=== PATIENT | female | born 1950 | race Caucasian/White ===

== ENCOUNTER 2025-01-03 14:04 | Inpatient (IN) ==
--- NOTE | 2025-01-03 14:49 | History & Physical Report ---
Date of Service January 03, 2025 Assessment & Plan (1) Cauda equina syndrome: Plan: Patient is being admitted directly to Dr. Slater service. We are proceeding with a stat lumbar MRI without contrast. Make n.p.o. after midnight in anticipation of proceeding with surgical intervention of her lumbar spine due to above-mentioned complaints. All of this has been reviewed with the patient and her . They expressed understanding are in agreement with above-mentioned plan Admission and Anticipated Discharge Date Admission Date: January 03, 2025 History of Present Illness Chief Complaint: Progressive loss of control of bowel function and bilateral lower extremity pain worsening Primary Care Provider: Abdelrahman Lemons MD Is a 74-year-old female that was referred to our office today from Dr. Darby in [facility] pain management team. She states since May she has had bilateral leg pain. She has see sought chiropractic treatment in [facility] as well as physical therapy without any long-term improvement. She then went to Dr. Darby for injections. She has received 2. After the first injection she started with loss of control of bowel. She went to a GI specialist at [facility] where they gave her an unknown medication which seemed to help her symptoms. Now for the past 2 weeks that she has had a return of her loss of control of bowel. She also notes urinary retention. She went to [facility] ER this weekend where they told her she has cauda equina syndrome, scheduled her for an outpatient MRI on Saturday 01/06 and told her that she should find a surgeon within 72 hours. She fortunately had a follow-up with Dr. Darby's team the next day where they called our office for urgent appointment. Allergies Allergy/AdvReac Type Severity Reaction Status Date / Time No Known Allergies Allergy Unknown Verified 10/12/06 18:29 acetaminophen AdvReac Unknown NOT Verified 03/28/09 03:59 TOLERATED PER [id number] oxycodone AdvReac Unknown NOT Verified 03/28/09 03:59 TOLERATED PER [id number] Home Medications Medication Instructions Recorded Confirmed Type Atenolol (Tenormin) 100 mg PO DAILY ##0 10/04/06 History Valsartan/Hctz (Diovan Hct 1 tab PO DAILY ##0 10/04/06 History 160MG/25MG *) Past Med/Surg History Problem List (Updated 01/03/25 @ 14:48 by Nae Day PA-C) Cauda equina syndrome Review of Systems Review of Systems: All systems reviewed & are unremarkable except as noted in HPI & below Physical Exam Physical Exam: She is seen today in conjunction with her . She is cooperative exam. She ambulates with an independent steady gait. She can toe walk and heel walk. Strength is 5/5 bilateral lower extremities Constitutional: average body habitus Eyes: normal visual newell by confrontation ENMT: external ear and nose normal, oropharynx normal Neck: normal visual inspection Respiratory: normal respiratory effort Cardiovascular: Extremities: normal capillary refill Gastrointestinal (Abdomen): normal bowel sounds, soft, nontender, no hepatosplenomegaly Musculoskeletal: Spine: + pain with thoraco-lumbar ROM Extremities: extremities normal to inspection and strength 5/5 throughout Skin: no rashes, warm and dry Neurologic: normal touch/pain/proprioception and moves all extremities Psychiatric: A+Ox3, euthymic affect Eye Contact: good eye contact
[2025-01-03] MEDS ORDERED: LORazepam Inj 0.5 MG in SYRINGE 0.25 ML IV PRN (15:15)
[2025-01-03] MEDS ORDERED: LORazepam 0.5 MG TAB PO PRN (15:15)
[2025-01-03] MEDS ORDERED: METOCLOPRAMIDE HCL INJ 5 MG/ML 2 ML VIAL IV PRN (15:15)
[2025-01-03] MEDS ORDERED: ACETAMINOPHEN 1,000 MG/100 ML VIAL IV PRN (15:15)
[2025-01-03] MEDS ORDERED: PROMETHAZINE 12.5 MG/50.5 ML BAG IV PRN (15:15)
[2025-01-03] MEDS ORDERED: NALOXONE HCL 0.4 MG/1 ML VIAL/CARP IV PRN (15:15)
[2025-01-03] MEDS ORDERED: HYDROmorphone INJ 1 MG/ML SYRINGE IV PRN (15:15)
[2025-01-03] MEDS: SODIUM CHLORIDE 0.9% 1,000 ML IV SCH (15:15)
[2025-01-03] MEDS ORDERED: ONDANSETRON 4 MG OD TAB PO PRN (15:15)
[2025-01-03] MEDS ORDERED: ONDANSETRON INJ 2 MG/ML 2 ML VIAL IV PRN (15:15)
[2025-01-03] MEDS: Patient's HEIGHT &/or WEIGHT Needed STA (15:54)
--- NOTE | 2025-01-03 16:19 | Hospitalist Consultation ---
Date of Consultation January 03, 2025 Assessment & Plan (1) Cauda equina syndrome: (2) Hypertension: (3) Prediabetes: (4) Dental infection: Plan This is a 74 year old female with PMHx of HTN, HLD, prediabetes, gout who presented to the hospital as a direct admit to the ortho spine service on 01/03/2025 for cauda equina syndrome. #Cauda Equina Syndrome was recently diagnosed in [facility] ED, saw Dr. Slater in outpatient clinic 01/03 & is now direct admit with possible surgery on 01/04. Stat lumbar XR & MRI pending. diet, pain management, PT/OT, DVT prophylaxis, and discharge planning per primary team. #HTN Outpatient regimen includes: HCTZ, amlodipine, metoprolol succinate. BP normotensive at time of encounter. Hold HCTZ in setting of upcoming surgery. #Prediabetes On Metformin outpatient - hold Place on SSI coverage while inpatient Update A1c in AM #Dental infection Recent tooth pull & infection. Was prescribed PCN VK 500mg TID outpatient which she recently just started & is to be on for 10 days. Continue PCN VK TID #GERD - PPI #HLD - statin DVT prophylaxis: per primary team Code: full Case was discussed with Dr. Smith at time of consultation. Updated family at bedside 01/03. Supervising Physician Co-Signing Physician Notes The patient was seen by me. The chart was reviewed. Case discussed with ANTHONY Tenorio. Agree with assessment and plan History of Present Illness Attending Physician: Kenroy Slater, DO History of Present Illness This is a 74 year old female with PMHx of HTN, HLD, prediabetes, gout who presented to the hospital as a direct admit to the ortho spine service on 01/03/2025 for cauda equina syndrome. Mary was seen & examined this evening. In terms of chronic medical conditions, her medications were reviewed in detail. She denied any hx of heart disease. She currently denies any CP, SOB, abdominal pain, N/V. Reports she has been taking Bentyl for loose stool at home. She states she recently had a tooth pulled that was infected and is on PCN VK treatment that she just started. She is supposed to be on this for 10 days. She denies any LE edema. Denies any urinary symptoms. Denies saddle anesthesia. Allergies Allergy/AdvReac Type Severity Reaction Status Date / Time No Known Allergies Allergy Unknown Verified 10/12/06 18:29 acetaminophen AdvReac Unknown NOT Verified 03/28/09 03:59 TOLERATED PER [id number] oxycodone AdvReac Unknown NOT Verified 03/28/09 03:59 TOLERATED PER [id number] Home Medications Medication Instructions Recorded Confirmed Type Atenolol (Tenormin) 100 mg PO DAILY ##0 10/04/06 History Valsartan/Hctz (Diovan Hct 1 tab PO DAILY ##0 10/04/06 History 160MG/25MG *) Patient History Social History Smoking Status: Never smoker Second Hand Exposure: No; Do You Dip or Chew Tobacco: No; Hx Alcohol Use: Yes Alcohol type: beer Hx Substance Use: No Preferred Language: Kinyarwanda Communication Ability: Effective After School Program Teacher Required: No Beliefs That Will Affect Care: None Current Living Situation: Spouse Other Information That Helps Us Care for You: No Feels Safe at Home: Yes Safety Concerns: Feels Safe At This Time Assistive Devices: None Physical Exam Physical Exam: General: NAD, VS: BP 132/83; P84; R14; T36.6C Resp: normal respiratory effort, lungs clear to auscultation CV: RRR, no murmur Abd: normal bowel sounds, non tender, soft Extremities: Moves all extremities, no edema, sensation intact. Neuro: A&O x3 Skin: intact, no lesions noted Results & Data Results & Data Vital Signs (Past 12 Hours) Vital Signs Temp Pulse Resp BP Pulse Ox O2 Del Method 01/03/25 14:50 Room Air 01/03/25 14:50 36.6 C 84 14 132/83 94 Room Air PG Care Time/CCT Total # of Minutes Spent Total Time Spent with Patient: Total time spent is greater than 50% in coordination of care (as documented) at patient's floor/unit and/or counseling patient: Coding Level of Care Code 15224 IN/OBS CONSULT LVL 3,45M Diagnoses Cauda equina syndrome G83.4 Hypertension I10 Prediabetes R73.03 Dental infection K04.7
[2025-01-03 16:32] LABS: Hematocrit (blood only) 37.1 % (37.0-47.0); Hemoglobin 11.7 g/dL (12.0-16.0); Immature Granulocytes # (auto) 0.01 K/uL (0.01-0.20); Immature Granulocytes % (auto) 0.2 %; Mean Corpuscular Hemoglobin 26.1 pg (25.0-34.0); Mean Corpuscular Volume 82.6 fL (80.0-100.0); Platelet Count 261 K/uL (130-400); RDW Standard Deviation 50.2 fL (36.4-46.3); Red Blood Count 4.49 M/uL (4.20-5.40); White Blood Count 5.06 K/ul (4.8-10.8)
[2025-01-03 16:51] LABS: Alanine Aminotransferase 16.0 U/L (7-52); Albumin Globulin Ratio 1.7 (0.9-2); Albumin Level 4.2 gm/dl (3.4-5.0); Alkaline Phosphatase 75.0 U/L (34-104); Anion Gap 10.0 (3-11); Bilirubin,Total 0.7 mg/dl (0.2-1.0); Blood Urea Nitrogen 18.0 mg/dl (6-23); Calcium 9.3 mg/dl (8.6-10.3); Carbon Dioxide 29.0 mmol/L (21-32); Chloride 102.0 mmol/L (98-107); Creatinine Clr Calc Pharmacy 43.9 ml/min; Globulin 2.5 gm/dl (2.5-4.0); Glucose 127.0 mg/dl (70-99(Fasting)); Potassium 3.6 mmol/L (3.5-5.1); Sodium 141.0 mmol/L (136-145); Total Protein 6.7 gm/dl (6.0-8.3)
--- NOTE | 2025-01-03 19:00 | XRay Report ---
Chest x-ray, 2 views History: Preop Comparison: None Technique: 2 views of the chest, PA and lateral Findings: The lungs are clear. Mild focal atelectasis at the lingula. The cardiomediastinal silhouette is within normal limits. No pleural effusion or pneumothorax. The heart size appears normal. No bony or soft tissue abnormality. Impression: Normal chest x-ray Electronically signed by Isael Wei 01-03-2025 6:59 PM
--- NOTE | 2025-01-03 19:41 | Magnetic Resonance Report ---
Clinical History: Lower back pain Technique: Sagittal and axial T1 and T2-weighted magnetic resonance images were obtained of the lumbar spine without gadolinium contrast. Findings: There is scoliosis. There is grade 1 anterolisthesis at L3-4. There are degenerative endplate changes at L2-3 and to a lesser extent at other levels. There are multiple apparent vertebral hemangiomas with characteristic increased T1 and increased T2 signal intensity. No other focal osseous lesion is evident. No acute fracture is identified. There is a mild old compression fracture of the L3 vertebral body with loss of up to 20% of the vertebral body height centrally. There is no definite sign of infection. There is no sign of acute ligamentous injury. The conus medullaris appears normal, terminating at the level of T12-L1. At L1-L2, there is a disc bulge that compresses the anterior thecal sac. There is no spinal stenosis or compression of the traversing nerve roots. There is right greater than left neural foramen narrowing that may affect the right L1 nerve root At L2-L3, there is mild spinal stenosis due to a disc bulge and facet osteoarthritis. There is no definite compression of the traversing nerve roots. There is right greater than left neural foramen narrowing that may affect the right L2 nerve root At L3-L4, there is severe spinal stenosis due to a disc bulge and facet osteoarthritis. There is apparent compression of the traversing nerve roots. There is bilateral neural foramen narrowing that may affect the exiting L3 nerve roots At L4-L5, there is spinal stenosis due to a disc bulge and facet osteoarthritis. The traversing L5 nerve roots are approached but not clearly compressed. There is bilateral neural foramen narrowing that may affect the exiting L4 nerve roots At L5-S1, there is a disc bulge without spinal stenosis. There is facet osteoarthritis. There is left greater than right neural foramen narrowing that may affect the left L5 nerve root. Impression: 1. No sign of acute fracture or ligamentous injury 2. Mild old L3 compression fracture 3. Scoliosis 4. Mild anterolisthesis at L3-4 5. Severe spinal stenosis at L3-4 with compression of the traversing nerve roots 6. Less severe spinal stenosis at L2-3 and L4-5, without visible compression of the traversing nerve roots 7. Right L1-2 and L2-3, bilateral L3-4 and L4-5, and left L5-S1 neural foramen narrowing. This may affect the exiting nerve roots ACT 112: Positive. There are findings on this exam that require communication between the performing entity and the patient following Patient Test Result Information Act ([place] ACT 112) guidelines. Electronically signed by Valentin Barth 01-03-2025 7:41 PM
[2025-01-03] MEDS: PENICILLIN V POTASSIUM 500 MG TAB PO SCH (20:52)
[2025-01-03] MEDS: INSULIN ASPART PER UNIT CHARGE SC SCH (20:58)
[2025-01-03] MEDS: DICYCLOMINE HCL 20 MG TAB PO PRN (21:14)
[2025-01-04] MEDS: HYDROmorphone INJ 0.5 MG/0.5 ML SYR IV PRN (00:23)
[2025-01-04 06:41] LABS: Hematocrit (blood only) 35.8 % (37.0-47.0); Hemoglobin 11.3 g/dL (12.0-16.0); Mean Corpuscular Hemoglobin 26.0 pg (25.0-34.0); Mean Corpuscular Volume 82.3 fL (80.0-100.0); Platelet Count 229 K/uL (130-400); RDW Standard Deviation 48.2 fL (36.4-46.3); Red Blood Count 4.35 M/uL (4.20-5.40); White Blood Count 5.33 K/ul (4.8-10.8)
[2025-01-04 06:59] LABS: Anion Gap 9.0 (3-11); Blood Urea Nitrogen 17.0 mg/dl (6-23); Calcium 9.1 mg/dl (8.6-10.3); Carbon Dioxide 28.0 mmol/L (21-32); Chloride 103.0 mmol/L (98-107); Creatinine Clr Calc Pharmacy 59.1 ml/min; Glucose 118.0 mg/dl (70-99(Fasting)); Potassium 3.7 mmol/L (3.5-5.1); Sodium 140.0 mmol/L (136-145)
[2025-01-04 07:44] LABS: Hemoglobin A1C 6.8 % (4.5-5.6)
[2025-01-04] MEDS: ATORVASTATIN 20 MG TAB PO SCH (08:16)
[2025-01-04] MEDS: METOPROLOL SUCC 50MG EXT REL TAB PO SCH (08:17)
[2025-01-04] MEDS ORDERED: VALSARTAN 80 MG TAB PO SCH (09:00)
[2025-01-04] MEDS ORDERED: ATENOLOL 50 MG TABLET PO SCH (09:00)
[2025-01-04] MEDS ORDERED: hydroCHLOROthiazide 25 MG TAB PO SCH (09:00)
--- NOTE | 2025-01-04 10:03 | Orthopedic Progress Note ---
Date of Service January 04, 2025 Assessment & Plan (1) Multilevel lumbosacral spondylosis with radiculopathy: Plan: Assessment MRI lumbar spine available for review confirms severe spinal stenosis facet operatively spondylosis at L3-L4. L4-L5 has a least moderate subarticular stenosis. L5-S1 has marked facet hypertrophy. Plan at this time at length she has exhibited a with the patient regarding her marked decline in status and treatment plan. She would require a lumbar decompression and fusion L3-L4 L4- L5. Risk benefits pros cons of terms in detail. At this time we will plan for surgery on Tuesday and have her work with medicine over the next few days to maximize her for surgery. Patient or stands agrees. Admission and Anticipated Discharge Date Admission Date: January 03, 2025 Subjective Patient still struggling with back and bilateral leg pain. She is a bit more comfortable with bed rest and medications. Still struggling with bowel movements Physical Exam Physical Exam: On exam she is comfortable in bed. Reasonable strength to testing lower extremities. Results & Data Vital Signs (Past 12 Hours) Vital Signs Temp Pulse Resp BP Pulse Ox O2 Del Method 01/04/25 07:27 36.7 C 63 16 159/73 H 94 Room Air 01/03/25 22:38 36.8 C 18 162/83 H 94 Room Air
--- NOTE | 2025-01-04 11:25 | Hospitalist Progress Note ---
Date of Service January 04, 2025 Assessment & Plan (1) Cauda equina syndrome: (2) Hypertension: (3) Prediabetes: (4) Dental infection: Plan This is a 74 year old female with PMHx of HTN, HLD, prediabetes, gout who presented to the hospital as a direct admit to the ortho spine service on 01/03/2025 for cauda equina syndrome. #Cauda Equina Syndrome was recently diagnosed in [facility] ED, saw Dr. Slater in outpatient clinic 01/03 & is now direct admit with possible surgery on 01/04. Lumbar spine MRI: severe spinal stenosis @ L3-L4 w/ compression of traversing nerve roots; less severe spinal stenosis @ L2-L3 & L4-L5 w/o visible compression of traversing nerve roots. Surgery set for 01/07. RCRI score 0. diet, pain management, PT/OT, DVT prophylaxis, and discharge planning per primary team. #HTN Outpatient regimen includes: HCTZ, amlodipine, metoprolol succinate. BP normotensive at time of encounter. Hold HCTZ in setting of upcoming surgery. #Prediabetes On Metformin outpatient - hold A1c 6.8% Place on SSI coverage while inpatient #Dental infection Recent tooth pull & infection. Was prescribed PCN VK 500mg TID outpatient which she recently just started & is to be on for 10 days. Continue PCN VK TID #GERD - PPI #HLD - statin DVT prophylaxis: per primary team Code: full Updated family at bedside 01/04. Admission and Anticipated Discharge Date Admission Date: January 03, 2025 Supervising Physician Co-Signing Physician Notes The patient was not seen by me. The chart was reviewed. Case discussed with ANTHONY Tenorio. Agree with assessment and plan Subjective Mary was seen & examined this morning. She reports she is feeling okay today, denies any new complaints. Surgery is set for 01/07. Physical Exam Physical Exam: General: NAD, VS: BP 159/73; P63; R16; T36.7C Resp: normal respiratory effort Extremities: no edema Neuro: A&O x3 Skin: intact, no lesions noted Results & Data Results & Data Vital Signs (Past 12 Hours) Vital Signs Temp Pulse Resp BP Pulse Ox O2 Del Method 01/04/25 07:27 36.7 C 63 16 159/73 H 94 Room Air 01/04/25 07:10 Room Air PG Care Time/CCT Total # of Minutes Spent Total Time Spent with Patient: Total time spent is greater than 50% in coordination of care (as documented) at patient's floor/unit and/or counseling patient: Coding Level of Care Code 56169 SUB INP/OBS CARE 2/35MIN Diagnoses Cauda equina syndrome G83.4 Hypertension I10 Prediabetes R73.03 Dental infection K04.7
[2025-01-04] MEDS ORDERED: INSULIN ASPART PER UNIT CHARGE SC SCH (12:00)
[2025-01-04] MEDS: INSULIN ASPART PER UNIT CHARGE SC SCH (12:22)
--- NOTE | 2025-01-05 09:28 | Orthopedic Progress Note ---
Date of Service January 05, 2025 Assessment & Plan (1) Multilevel lumbosacral spondylosis with radiculopathy: Plan: At this time are planning for surgery Tuesday pending clearance from anesthesia and medicine. All questions were addressed. Will plan for n.p.o. after midnight Tuesday. Admission and Anticipated Discharge Date Admission Date: January 03, 2025 Subjective Patient is in the chair at the bedside. She is more able to walk in the room only. She still struggles with back leg pain weakness and bowel issues. Physical Exam Physical Exam: Patient does appear comfortable. She is demonstrating reasonable strength testing lower extremities. Results & Data Vital Signs (Past 12 Hours) Vital Signs Temp Pulse Resp BP Pulse Ox O2 Del Method 01/05/25 07:35 37.1 C 64 16 155/77 H 94 Room Air 01/04/25 23:27 36.8 C 68 16 160/88 H 98 Room Air
--- NOTE | 2025-01-05 12:31 | Anesthesiology Consultation ---
Date of Service January 05, 2025 Assessment & Plan (1) Encounter for pre-operative examination: Chart Review Chart Review: Acceptable Risk for Surgery (pending preop ecg) History Surgery Operation Date: 01/07/25 09:05 Proposed Procedures p L3-L5 Decompression and Fusion - Kenroy Slater DO Height/Weight Height: 5 ft 1 in Weight: 67 kg Allergies Allergy/AdvReac Type Severity Reaction Status Date / Time No Known Allergies Allergy Unknown Verified 10/12/06 18:29 acetaminophen AdvReac Unknown NOT Verified 03/28/09 03:59 TOLERATED PER [id number] oxycodone AdvReac Unknown NOT Verified 03/28/09 03:59 TOLERATED PER [id number] Medications Home Medications Medication Instructions Recorded Confirmed Last Taken Atenolol (Tenormin) 100 mg PO DAILY ##0 10/04/06 Unknown Valsartan/Hctz (Diovan Hct 1 tab PO DAILY ##0 10/04/06 Unknown 160MG/25MG *) Active Medications Generic Name Dose Route Start Last Admin Trade Name Freq PRN Reason Stop Dose Admin Allopurinol 300 mg 01/04/25 09:00 01/05/25 08:15 Allopurinol 300 Mg Tab PO 02/03/25 08:59 300 mg DAILY TITO Administration Amlodipine Besylate 5 mg 01/04/25 09:00 01/05/25 08:15 Amlodipine Besylate 5 Mg Tab PO 02/03/25 08:59 5 mg QAM TITO Administration Atorvastatin Calcium 20 mg 01/04/25 09:00 01/05/25 08:15 Atorvastatin 20 Mg Tab PO 02/03/25 08:59 20 mg QAM TITO Administration Dicyclomine HCl 20 mg 01/03/25 16:41 01/05/25 08:13 Dicyclomine Hcl 20 Mg Tab PO 02/02/25 20:59 20 mg BID PRN Administration diarrhea Hydromorphone HCl 0.5 mg 01/03/25 15:15 01/04/25 00:23 Hydromorphone Inj 0.5 Mg/0.5 Ml Syr IV 01/17/25 15:14 0.5 mg Q3H PRN Administration MOD pain (scale 4-6) & Pre PT Insulin Aspart 0 units 01/04/25 11:30 01/05/25 11:57 Insulin Aspart Per Unit Charge SC 02/03/25 11:29 Not Given ACHS TITO Metoprolol Succinate 100 mg 01/04/25 09:00 01/05/25 08:15 Metoprolol Succ 50mg Ext Rel Tab PO 02/03/25 08:59 100 mg QAM TITO Administration Pantoprazole Sodium 40 mg 01/04/25 09:00 01/05/25 08:16 Pantoprazole 40 Mg Tab PO 02/03/25 08:59 40 mg QAM TITO Administration Penicillin V Potassium 500 mg 01/03/25 21:00 01/05/25 08:13 Penicillin V Potassium 500 Mg Tab PO 01/13/25 20:59 500 mg TID TITO Administration Tramadol HCl 50 - 100 mg 01/03/25 15:15 01/03/25 20:52 Tramadol Hcl 50 Mg Tablet PO 02/02/25 15:14 100 mg Q4H PRN Administration Moderate-Severe pain & Pre PT Past Medical History Medical History (Updated 01/05/25 @ 12:35 by Wally Johns MD) Anemia Dental infection Prediabetes Hypertension Past Surgical History Surgical History (Updated 01/05/25 @ 12:33 by Wally Johns MD) Hx of repair of rotator cuff Hx of total knee arthroplasty Social History Smoking Status: Never smoker Do You Dip or Chew Tobacco: No Hx Alcohol Use: Yes Alcohol type: beer alcohol intake frequency: holidays/special occasions only Hx Substance Use: No substance use type: does not use Physical Exam Vital Signs Last Vital Signs Temp 37.1 C 01/05/25 07:35 Pulse 64 01/05/25 07:35 Resp 16 01/05/25 07:35 BP 155/77 H 01/05/25 07:35 Pulse Ox 94 01/05/25 07:35 O2 Del Method Room Air 01/05/25 07:35 Testing Laboratory Results 01/04/25 04:44 01/04/25 04:44 Hemoglobin A1c 6.8 % (4.5-5.6) H 01/04/25 04:44 01/05/25 01/05/25 11:40 07:35 POC Glucose 81 112 H
--- NOTE | 2025-01-05 13:08 | Hospitalist Progress Note ---
Date of Service January 05, 2025 Assessment & Plan (1) Cauda equina syndrome: (2) Hypertension: (3) Prediabetes: (4) Dental infection: Plan This is a 74 year old female with PMHx of HTN, HLD, prediabetes, gout who presented to the hospital as a direct admit to the ortho spine service on 01/03/2025 for cauda equina syndrome. #Cauda Equina Syndrome was recently diagnosed in [facility] ED, saw Dr. Slater in outpatient clinic 01/03 & is now direct admit with possible surgery on 01/04. Lumbar spine MRI: severe spinal stenosis @ L3-L4 w/ compression of traversing nerve roots; less severe spinal stenosis @ L2-L3 & L4-L5 w/o visible compression of traversing nerve roots. Surgery set for 01/07. RCRI score 0. diet, pain management, PT/OT, DVT prophylaxis, and discharge planning per primary team. #HTN Outpatient regimen includes: HCTZ, amlodipine, metoprolol succinate. Hold HCTZ in setting of upcoming surgery. EKG reviewed, revealing normal sinus rhythm w/ incomplete RBBB #Prediabetes On Metformin outpatient - hold A1c 6.8% Place on SSI coverage while inpatient #Dental infection Recent tooth pull & infection. Was prescribed PCN VK 500mg TID outpatient which she recently just started & is to be on for 10 days. Continue PCN VK TID #GERD - PPI #HLD - statin DVT prophylaxis: per primary team Code: full Admission and Anticipated Discharge Date Admission Date: January 03, 2025 Supervising Physician Co-Signing Physician Notes The patient was not seen by me. The chart was reviewed. Case discussed with ANTHONY Tenorio. Agree with assessment and plan Subjective Mary was seen & examined this morning. She reports she is feeling okay today, back pain is not worsening. She also reports her bowel/bladder issues are stable & have not worsened. Physical Exam Physical Exam: General: NAD, VS: BP 155/77; P64; R16; T37.1 Resp: normal respiratory effort Extremities: Moves all extremities, no edema Neuro: A&O x3 Skin: intact, no lesions noted Results & Data Results & Data Vital Signs (Past 12 Hours) Vital Signs Temp Pulse Resp BP Pulse Ox O2 Del Method 01/05/25 07:35 37.1 C 64 16 155/77 H 94 Room Air PG Care Time/CCT Total # of Minutes Spent Total Time Spent with Patient: Total time spent is greater than 50% in coordination of care (as documented) at patient's floor/unit and/or counseling patient: Coding Level of Care Code 79715 SUB INP/OBS CARE 2/35MIN Diagnoses Cauda equina syndrome G83.4 Hypertension I10 Prediabetes R73.03 Dental infection K04.7
--- NOTE | 2025-01-06 11:01 | Hospitalist Progress Note ---
Date of Service January 06, 2025 Assessment & Plan (1) Cauda equina syndrome: (2) Hypertension: (3) Prediabetes: (4) Dental infection: Plan This is a 74 year old female with PMHx of HTN, HLD, prediabetes, gout who presented to the hospital as a direct admit to the ortho spine service on 01/03/2025 for cauda equina syndrome. #Cauda Equina Syndrome was recently diagnosed in [facility] ED, saw Dr. Slater in outpatient clinic 01/03 & is now direct admit with possible surgery on 01/04. Lumbar spine MRI: severe spinal stenosis @ L3-L4 w/ compression of traversing nerve roots; less severe spinal stenosis @ L2-L3 & L4-L5 w/o visible compression of traversing nerve roots. Surgery set for 01/07, NPO after midnight. Will add fluids to start after midnight in the setting of NPO status. diet, pain management, PT/OT, DVT prophylaxis, and discharge planning per primary team. #HTN Outpatient regimen includes: HCTZ, amlodipine, metoprolol succinate. Hold HCTZ EKG reviewed, revealing normal sinus rhythm w/ incomplete RBBB #Prediabetes On Metformin outpatient - hold A1c 6.8%; Place on SSI coverage while inpatient #Dental infection Recent tooth pull & infection. Was prescribed PCN VK 500mg TID outpatient which she recently just started & is to be on for 10 days. Continue PCN VK TID #GERD - PPI #HLD - statin DVT prophylaxis: per primary team Code: full Admission and Anticipated Discharge Date Admission Date: January 03, 2025 Supervising Physician Co-Signing Physician Notes The patient was not seen by me. The chart was reviewed. Case discussed with ANTHONY Tenorio. Agree with assessment and plan Subjective Mary was seen & examined this morning. She reports she did not sleep well but denied any additional complaints. she is to undergo surgery with Dr. Slater tomorrow. Physical Exam Physical Exam: General: NAD, VS: BP 144/84; P69; R14; T36.7C Resp: normal respiratory effort Extremities: Moves all extremities, no edema Neuro: A&O x3 Skin: intact, no lesions noted Results & Data Results & Data Vital Signs (Past 12 Hours) Vital Signs Temp Pulse Resp BP BP Pulse Ox O2 Del Method 01/06/25 07:46 36.7 C 69 14 144/84 H 93 Room Air 01/05/25 23:04 36.9 C 71 16 178/76 H 96 Room Air PG Care Time/CCT Total # of Minutes Spent Total Time Spent with Patient: Total time spent is greater than 50% in coordination of care (as documented) at patient's floor/unit and/or counseling patient: Coding Level of Care Code 18932 SUB INP/OBS CARE 2/35MIN Diagnoses Cauda equina syndrome G83.4 Hypertension I10 Prediabetes R73.03 Dental infection K04.7
--- NOTE | 2025-01-06 11:33 | Orthopedic Progress Note ---
Date of Service January 06, 2025 Assessment & Plan (1) Multilevel lumbosacral spondylosis with radiculopathy: Plan: This time we will make patient n.p.o. after midnight. Will plan for surgery tomorrow. She has been evaluated by anesthesia and is cleared for surgery. Admission and Anticipated Discharge Date Admission Date: January 03, 2025 Subjective Patient is anxious for surgery. She is still quite limited with back and leg symptoms. Physical Exam Physical Exam: Patient is currently in bed. He was strength testing lower extremities. Results & Data Vital Signs (Past 12 Hours) Vital Signs Temp Pulse Resp BP Pulse Ox O2 Del Method 01/06/25 07:46 36.7 C 69 14 144/84 H 93 Room Air
[2025-01-06] MEDS: SODIUM CHLORIDE 0.9% 1,000 ML IV SCH (23:25)
[2025-01-07 06:12] LABS: Hematocrit (blood only) 32.4 % (37.0-47.0); Hemoglobin 10.6 g/dL (12.0-16.0); Mean Corpuscular Hemoglobin 26.9 pg (25.0-34.0); Mean Corpuscular Volume 82.2 fL (80.0-100.0); Platelet Count 200 K/uL (130-400); RDW Standard Deviation 48.5 fL (36.4-46.3); Red Blood Count 3.94 M/uL (4.20-5.40); White Blood Count 4.81 K/ul (4.8-10.8)
[2025-01-07 06:27] LABS: Anion Gap 7.0 (3-11); Blood Urea Nitrogen 17.0 mg/dl (6-23); Calcium 9.0 mg/dl (8.6-10.3); Carbon Dioxide 26.0 mmol/L (21-32); Chloride 108.0 mmol/L (98-107); Creatinine Clr Calc Pharmacy 66.5 ml/min; Glucose 128.0 mg/dl (70-99(Fasting)); Potassium 3.8 mmol/L (3.5-5.1); Sodium 141.0 mmol/L (136-145)
[2025-01-07] MEDS ORDERED: DEXAMETHASONE SOD INJ 4 MG/ML VIAL ONE (08:25)
[2025-01-07] MEDS ORDERED: SUGAMMADEX SODIUM 200 MG/2 ML VIAL IV ONE (08:25)
[2025-01-07] MEDS ORDERED: ROCURONIUM BROMIDE 10 MG/ML 5 ML VIAL IV ONE (08:25)
[2025-01-07] MEDS ORDERED: MIDAZOLAM HCL 1 MG/ML 2ML VIAL ONE (08:25)
[2025-01-07] MEDS ORDERED: ONDANSETRON INJ 2 MG/ML 2 ML VIAL ONE (08:25)
[2025-01-07] MEDS ORDERED: PROPOFOL IV EMULSION 10 MG/ML 20 ML VIAL IV ONE (08:25)
[2025-01-07] MEDS ORDERED: PROMETHAZINE HCL 6.25 MG in SODIUM CHLORIDE 0.9% 50 ML IV PRN (08:32)
[2025-01-07] MEDS ORDERED: ATROPINE SULFATE 0.1 MG/ML 10ML SYR IV PRN (08:32)
[2025-01-07] MEDS ORDERED: ONDANSETRON INJ 2 MG/ML 2 ML VIAL IV PRN ×2 (08:32→12:21)
[2025-01-07] MEDS ORDERED: HYDROmorphone INJ 1 MG/ML SYRINGE IV PRN (08:32)
--- NOTE | 2025-01-07 08:33 | Anesthesiology Consultation ---
Date of Service January 07, 2025 Assessment & Plan (1) Encounter for pre-operative examination: Chart Review Chart Review: Acceptable Risk for Surgery and Patient NOT seen in Pre Admission Testing Consults Requested none History Surgery Operation Date: 01/07/25 09:05 Proposed Procedures p L3-L5 Decompression and Fusion - Kenroy Slater DO Height/Weight Height: 5 ft 1 in Weight: 67 kg Allergies Allergy/AdvReac Type Severity Reaction Status Date / Time No Known Allergies Allergy Unknown Verified 01/07/25 08:29 Medications Home Medications Medication Instructions Recorded Confirmed Last Taken Atenolol (Tenormin) 100 mg PO DAILY ##0 10/04/06 Unknown Valsartan/Hctz (Diovan Hct 1 tab PO DAILY ##0 10/04/06 Unknown 160MG/25MG *) Active Medications Generic Name Dose Route Start Last Admin Trade Name Freq PRN Reason Stop Dose Admin Allopurinol 300 mg 01/04/25 09:00 01/07/25 07:46 Allopurinol 300 Mg Tab PO 02/03/25 08:59 300 mg DAILY TITO Administration Amlodipine Besylate 5 mg 01/04/25 09:00 01/07/25 07:46 Amlodipine Besylate 5 Mg Tab PO 02/03/25 08:59 5 mg QAM TITO Administration Atorvastatin Calcium 20 mg 01/04/25 09:00 01/07/25 07:46 Atorvastatin 20 Mg Tab PO 02/03/25 08:59 20 mg QAM TITO Administration Dicyclomine HCl 20 mg 01/03/25 16:41 01/05/25 08:13 Dicyclomine Hcl 20 Mg Tab PO 02/02/25 20:59 20 mg BID PRN Administration diarrhea Hydromorphone HCl 0.5 mg 01/03/25 15:15 01/04/25 00:23 Hydromorphone Inj 0.5 Mg/0.5 Ml Syr IV 01/17/25 15:14 0.5 mg Q3H PRN Administration MOD pain (scale 4-6) & Pre PT Sodium Chloride 1,000 mls @ 80 mls/hr 01/07/25 00:00 01/06/25 23:25 Nss IV 01/10/25 00:00 80 mls/hr .[id number] TITO Administration Insulin Aspart 0 units 01/04/25 11:30 01/07/25 07:18 Insulin Aspart Per Unit Charge SC 02/03/25 11:29 Not Given ACHS TITO Metoprolol Succinate 100 mg 01/04/25 09:00 01/07/25 07:46 Metoprolol Succ 50mg Ext Rel Tab PO 02/03/25 08:59 100 mg QAM TITO Administration Pantoprazole Sodium 40 mg 01/04/25 09:00 01/07/25 07:47 Pantoprazole 40 Mg Tab PO 02/03/25 08:59 40 mg QAM TITO Administration Penicillin V Potassium 500 mg 01/03/25 21:00 01/07/25 07:47 Penicillin V Potassium 500 Mg Tab PO 01/13/25 20:59 500 mg TID TITO Administration Tramadol HCl 50 - 100 mg 01/03/25 15:15 01/03/25 20:52 Tramadol Hcl 50 Mg Tablet PO 02/02/25 15:14 100 mg Q4H PRN Administration Moderate-Severe pain & Pre PT NPO Date Last Intake of Fluids: 01/06/25 Time Last Intake of Fluids: 23:00 Date Last Intake of Solids: 01/06/25 Past Medical History Medical History Anemia Dental infection Prediabetes Hypertension Plan This is a 74 year old female with PMHx of HTN, HLD, prediabetes, gout who presented to the hospital as a direct admit to the ortho spine service on 01/03/2025 for cauda equina syndrome. #Cauda Equina Syndrome was recently diagnosed in [facility] ED, saw Dr. Slater in outpatient clinic 01/03 & is now direct admit with possible surgery on 01/04. Lumbar spine MRI: severe spinal stenosis @ L3-L4 w/ compression of traversing nerve roots; less severe spinal stenosis @ L2-L3 & L4-L5 w/o visible compression of traversing nerve roots. Surgery set for 01/07, NPO after midnight. Will add fluids to start after midnight in the setting of NPO status. diet, pain management, PT/OT, DVT prophylaxis, and discharge planning per primary team. Exercise / Class Metabolic Activity II 4-5 Yardwork/Stairs/Walk up hill Past Surgical History Surgical History Hx of repair of rotator cuff Hx of total knee arthroplasty Past Anesthesia History No Hx of Anesthesia Complications and No Family Hx of Anesthesia Complications Social History Smoking Status: Never smoker Do You Dip or Chew Tobacco: No Hx Alcohol Use: Yes Alcohol type: beer alcohol intake frequency: holidays/special occasions only Hx Substance Use: No substance use type: does not use Physical Exam Vital Signs Last Vital Signs Temp 36.8 C 01/07/25 07:11 Pulse 87 01/07/25 07:11 Resp 16 01/07/25 07:11 BP 180/81 H 01/07/25 07:11 Pulse Ox 96 01/07/25 07:11 O2 Del Method Room Air 01/07/25 07:11 Testing Laboratory Results 01/07/25 05:40 01/07/25 05:40 Hemoglobin A1c 6.8 % (4.5-5.6) H 01/04/25 04:44 Blood Type A Positive 01/06/25 14:05 Antibody Screen NEGATIVE 01/06/25 14:05 01/07/25 07:16 POC Glucose 114 H Electrocardiogram Date: 01/05/25 Findings: + NSR @ (67) and + RBBB (incomplete ) Chest X-Ray Date: 01/03/25 Chest x-ray, 2 views History: Preop Comparison: None Technique: 2 views of the chest, PA and lateral Findings: The lungs are clear. Mild focal atelectasis at the lingula. The cardiomediastinal silhouette is within normal limits. No pleural effusion or pneumothorax. The heart size appears normal. No bony or soft tissue abnormality. Impression: Normal chest x-ray
--- NOTE | 2025-01-07 08:59 | History & Physical Bridge Note ---
Date of Service January 07, 2025 History & Physical Bridge Note I have examined the patient, reviewed the History & Physical and in the interval since the performance of the History & Physical I have noted the following changes of clinical significance: no changes noted Patient has severe spinal stenosis with loss of bowel control. This has been progressive in nature. Updated imaging confirms her disease. She is medically maximized and recommending emergent decompression fusion L3-L4 L4-L5 to prevent worsening neurologic deficit and functional loss.
[2025-01-07] MEDS ORDERED: ePHEDrine sulfate 50 MG/5 ML SYR ONE (09:45)
[2025-01-07] MEDS ORDERED: PHENYLEPHRINE 100MCG/ML 5ML SYR ONE (09:45)
[2025-01-07] MEDS: BUPIVACAINE/EPINEPHRINE 0.25% 1:200,000 30 ML VIAL ONE (11:03)
[2025-01-07] MEDS: FLOSEAL HEMOSTATIC MATRIX 10ML TOP ONE (11:03)
[2025-01-07] MEDS: ceFAZolin 330 MG/ML 1 GM VIAL ONE (11:05)
--- NOTE | 2025-01-07 11:19 | Operative Report ---
Post Operative Report Pre & Post Diagnosis Operation Date: 01/07/25 09:05 Pre-Op Diagnosis: #1 multilevel lumbosacral spondylosis with radiculopathy #2 lumbar spondylolisthesis with radiculopathy #3 lumbar spinal stenosis #4 cauda equina syndrome Post-Op Diagnosis: Same I identified the patient and participated in the time-out.: Yes Procedure Operation Date: 01/07/25 09:05 Actual Procedures #1 lumbar decompression bilateral facetectomies and foraminotomies L2-L3, L3-L4 and L4-5. #2 posterior spinal fusion L3-L5. #3 placed posterior instrumentation L3-L5 using camber. #4 interbody fusion L3-L4 L4-5. #5 placement of Spira 13 x 26 mm at L3-L4 and 14 x 26 mm at L4-L5. #6 placement of Proteus combined with Koros bone graft in the posterior lateral gutters and os design in the interbody spaces. #7 application of versa wrap of the exposed dura. Surgeon Kenroy Slater, Upper And Bottom Lacer Hand Nae Whelan Estimated Blood Loss 200 Findings Consistent with Post-Op Diagnosis Specimens None Indications This is a 74-year-old female who presents to us in our office with a marked decline in status. Patient was struggling severe bilateral leg pain and loss of bowel control. She was admitted to the hospital from our office and underwent updated imaging lumbar spine. Imaging confirmed she severe spinal stenosis L3- L4 L4-5 with instability. She was subsequently medically cleared for surgery and underwent emergent decompression and fusion to prevent further neurologic and functional decline. Description of Procedure Patient was met with identified informed consent obtained. Patient was then taken to the operative suite underwent ovation placed in prone position on the Prasanth table atop the Thien frame. All bony prominences well-padded eyes inspected to ensure no external pressure placed upon them. This point lumbar spine was prepped and draped in normal sterile fashion. Sharp dissection with the assistance of Bovie cautery performed down to and exposing the lamina transverse processes of L3-L4-L5 bilaterally. From caudal to cephalad fashion complete laminectomy of all 4 was performed including bilateral medial facetectomy and foraminotomies addressing severe neural compression. This is followed by complete laminectomy of L3 with bilateral medial facetectomies and foraminotomies addressing severe neural compression and lastly partial laminectomy L2 with medial facetectomies to address subarticular stenosis. Pedicle screws were then placed in L3-L4-L5 bilaterally with assistance of fluoroscopy appropriate size amalia placed. By way of transforaminal approach on the right and complete discectomy of L for L5 was performed. Endplates guided to subcortical bleeding bone and a 14 x 26 mm Spira cage tapped into position. Then proceeded to L3-L4 and again by way of transforaminal approach on the right complete discectomy was performed. Endplates created to subcortical bleeding bone and a 13 x 26 mm Spira cage tapped into position. Please note all cages were packed with os design bone graft. The rods were then compressed locked into final position bilaterally. The transverse processes of L3-L4-L5 burred to subcortical bony bone. Proteus combined with Koros bone graft placed in the posterior lateral gutters. Burst wrap placed of exposed dura. 15 round TOPHER drain inserted. The incision was then closed 1 Vicryl in the fascia 2-0 Vicryl subcutaneously and 4 Monocryl for final skin closure. Steri-Strips sterile dressing placed. Patient waken taken to PACU in stable condition. Please note Nae Whelan was present of the entire procedure and brought the patient positioning complex portion of the surgery and final skin closure. I attest to the content of the Intraoperative Record and any orders documented therein. Any exceptions are noted below.
[2025-01-07] MEDS ORDERED: ALUMINUM/MAGNESIUM SUSP 30 ML UDC PO PRN (12:21)
[2025-01-07] MEDS ORDERED: FAMOTIDINE 20 MG TAB PO PRN (12:21)
[2025-01-07] MEDS ORDERED: ONDANSETRON 4 MG OD TAB PO PRN (12:21)
[2025-01-07] MEDS ORDERED: LORazepam 0.5 MG TAB PO PRN (12:21)
[2025-01-07] MEDS ORDERED: ACETAMINOPHEN 1,000 MG/100 ML VIAL IV PRN (12:21)
[2025-01-07] MEDS ORDERED: MAGNESIUM HYDROXIDE SUSP 30 ML UDC PO PRN (12:21)
[2025-01-07] MEDS ORDERED: PROMETHAZINE 12.5 MG/50.5 ML BAG IV PRN (12:21)
[2025-01-07] MEDS ORDERED: DO NOT ADMINISTER FLU VACCINE PRN (12:21)
[2025-01-07] MEDS ORDERED: DO NOT ADMINISTER PNEUMOCOCCAL VACCINE PRN (12:21)
[2025-01-07] MEDS ORDERED: diphenhydrAMINE Capsule 25 MG CAP PO PRN (12:21)
[2025-01-07] MEDS ORDERED: LORazepam Inj 0.5 MG in SYRINGE 0.25 ML IV PRN (12:21)
[2025-01-07] MEDS ORDERED: SOD PHOSPHATE/SOD BIPHOSPHATE ENEMA 132 ML BTL PR PRN (12:21)
[2025-01-07] MEDS ORDERED: ACETAMINOPHEN 500 MG TAB PO PRN (12:21)
[2025-01-07] MEDS ORDERED: METOCLOPRAMIDE HCL INJ 5 MG/ML 2 ML VIAL IV PRN (12:21)
[2025-01-07] MEDS ORDERED: NALOXONE HCL 0.4 MG/1 ML VIAL/CARP IV PRN (12:21)
[2025-01-07] MEDS: SODIUM CHLORIDE 0.9% 1,000 ML IV SCH (12:58)
--- NOTE | 2025-01-07 13:00 | Fluoroscopy Report ---
FL lumbar spine 2-3V CLINICAL HISTORY: L3-L5 DECOMPRESSION AND FUSION COMPARISON STUDY: None FLUOROSCOPY TIME: 14 seconds FLUOROSCOPY IMAGES: 3 EXPOSURE DOSE: 10 mGy FINDINGS: Fluoroscopy was provided for lower lumbar fusion. IMPRESSION: Intraoperative fluoroscopy. ACT 112: Negative or not required by law. Electronically signed by: Urbano Ramirez M.D. 01/07/2025 12:59 PM
--- NOTE | 2025-01-07 13:27 | Hospitalist Progress Note ---
Date of Service January 07, 2025 Assessment & Plan (1) Cauda equina syndrome: (2) Hypertension: (3) Prediabetes: (4) Dental infection: Plan This is a 74 year old female with PMHx of HTN, HLD, prediabetes, gout who presented to the hospital as a direct admit to the ortho spine service on 01/03/2025 for cauda equina syndrome. #Cauda Equina Syndrome Recent dx in [facility] ED Saw Dr. Slater in outpatient clinic 01/03 & was directly admitted Lumbar spine MRI: severe spinal stenosis @ L3-L4 w/ compression of traversing nerve roots; less severe spinal stenosis @ L2-L3 & L4-L5 w/o visible compression of traversing nerve roots. Underwent L3-L5 decompression and fusion with Dr. Slater on 01/07 Diet, pain management, PT/OT, DVT prophylaxis, and discharge planning per primary team Agree with a.m. CBC/BMP on 01/08; we will follow #HTN Outpatient regimen includes: HCTZ, amlodipine, metoprolol succinate. Hold HCTZ EKG reviewed, revealing normal sinus rhythm w/ incomplete RBBB #Prediabetes On Metformin outpatient - hold A1c 6.8%; Place on SSI coverage while inpatient #Dental infection Recent tooth pull & infection. Was prescribed PCN VK 500mg TID outpatient which she recently just started & is to be on for 10 days. Continue PCN VK TID #GERD - PPI #HLD - statin Disposition: Continued stay on MedSurg DVT prophylaxis: per primary team Thank you for allowing us to participate in the care of this patient. Please reach out with any questions or concerns; we will continue to follow. Admission and Anticipated Discharge Date Admission Date: January 03, 2025 Supervising Physician Co-Signing Physician Notes I did not see or examine the patient. I verified all mosher points and agree with Ronnell Kerr PA-C with the following exceptions and/or additions: None Subjective Mrs. Nayak is in good spirits following her surgery. While she is still coughing up some phlegm, she reports she has no sore throat or difficulty breathing. She has no back pain at this time. No numbness tingling going down her legs. She is eating and drinking without difficulty. She does not use up on oxygen at baseline or CPAP at night. She has not attempted to get up out of bed yet following her surgery. Overall, she reports she feels well and has no new complaints at this time. ROS: Patient endorses mild cough. Patient denies back pain, fever, sore throat, chest pain, SOB, abdominal pain, saddle anesthesia, or numbness tingling going down the legs. Review of Systems Review of Systems: See HPI above Physical Exam Physical Exam: General: no acute distress; non-toxic appearing; cooperative; SpO2 98% on 2L NC HEENT: normocephalic, atraumatic; PERRLA; vision and hearing intact Neck: supple; trachea midline Skin: warm, dry without signs of tenting; no cyanosis; no rashes, bruising, lesions, or erythema noted CV: chest wall NTP; RRR; S1/S2 normal; no murmurs/rubs/gallops; pulses intact and symmetric at radial, DP, and PT Lungs: no acute respiratory distress; symmetrical chest wall expansion; clear breath sounds across all lung newell w/o adventitious sounds; no wheezing ABD: Soft, NTP; BS present; no rebound/guarding; no distention Back: Upper spine NTP; lower spine NTP; surgical dressing in place without signs of erythema, drainage, or acute infection MSK: no tics or fasciculations; no edema noted in the LEs b/l (note: SCDs/teds in place); patient demonstrates ability to wiggle toes; 5/5 strength when lifting leg against resistance supine Neuro: A&Ox3; normal mood and affect; fluent speech; patient reports sensation is intact and symmetric in the lower extremities bilaterally assessed via light touch Results & Data Results & Data Vital Signs (Past 12 Hours) Vital Signs Temp Pulse Pulse Resp BP BP Pulse Ox 01/07/25 13:20 36.2 C L 85 16 121/79 98 01/07/25 13:03 36.0 C L 80 14 130/75 97 01/07/25 12:23 36.4 C L 70 14 129/71 98 01/07/25 12:10 36.5 C 75 16 133/77 99 01/07/25 12:00 81 19 128/88 96 01/07/25 11:50 81 20 119/67 91 01/07/25 11:40 80 17 145/73 H 97 01/07/25 11:30 35.8 C L 83 14 147/75 H 100 01/07/25 08:37 37 C 78 20 177/103 H 98 01/07/25 07:11 36.8 C 87 16 177/73 H 180/81 H 96 O2 Del Method O2 Flow Rate 01/07/25 13:20 Nasal Cannula 2 01/07/25 13:03 Nasal Cannula 2 01/07/25 12:23 Nasal Cannula 2 01/07/25 12:10 Nasal Cannula 2 01/07/25 12:00 Nasal Cannula 2 01/07/25 11:50 Nasal Cannula 2 01/07/25 11:40 Oxymask 2 01/07/25 11:30 Oxymask 4 01/07/25 08:37 Room Air 01/07/25 07:11 Room Air PG Care Time/CCT Total # of Minutes Spent Total Time Spent with Patient: Total time spent is greater than 50% in coordination of care (as documented) at patient's floor/unit and/or counseling patient: Coding [place] [address] SUB INP/OBS CARE 03/17MIN Patient Type Established Medical Decision Making Low Complexity Diagnoses Cauda equina syndrome G83.4 Hypertension I10 Prediabetes R73.03 Dental infection K04.7
--- NOTE | 2025-01-07 14:57 | Anesthesiology Progress Note ---
Date of Service January 07, 2025 Anesthesia Post Procedure Vital Signs Vital Signs: Temp Pulse Pulse Resp BP BP Pulse Ox 01/07/25 14:10 36.6 C 86 14 128/80 97 01/07/25 13:20 36.2 C L 85 16 121/79 98 01/07/25 13:03 36.0 C L 80 14 130/75 97 01/07/25 12:23 36.4 C L 70 14 129/71 98 01/07/25 12:10 36.5 C 75 16 133/77 99 01/07/25 12:00 81 19 128/88 96 01/07/25 11:50 81 20 119/67 91 01/07/25 11:40 80 17 145/73 H 97 01/07/25 11:30 35.8 C L 83 14 147/75 H 100 01/07/25 08:37 37 C 78 20 177/103 H 98 01/07/25 07:11 36.8 C 87 16 177/73 H 180/81 H 96 01/06/25 23:19 36.7 C 77 16 152/80 H 97 01/06/25 20:45 O2 Del Method O2 Flow Rate 01/07/25 14:10 Nasal Cannula 2 01/07/25 13:20 Nasal Cannula 2 01/07/25 13:03 Nasal Cannula 2 01/07/25 12:23 Nasal Cannula 2 01/07/25 12:10 Nasal Cannula 2 01/07/25 12:00 Nasal Cannula 2 01/07/25 11:50 Nasal Cannula 2 01/07/25 11:40 Oxymask 2 01/07/25 11:30 Oxymask 4 01/07/25 08:37 Room Air 01/07/25 07:11 Room Air 01/06/25 23:19 Room Air 01/06/25 20:45 Room Air Pain Intensity Right Shoulder: Pain Intensity: 3 Transfer of Care Handoff Completed per policy Notes Mental Status: alert / awake / arousable and participated in evaluation Patient Amnestic to Procedure: Yes Nausea / Vomiting: adequately controlled Pain: adequately controlled Airway Patency, RR, SpO2: stable & adequate BP & HR: stable & adequate Hydration State: stable & adequate Anesthetic Complications: no major complications apparent and Pt Satisfied with anesthetic care
[2025-01-07] MEDS: DOCUSATE SODIUM/SENNA 50/8.6MG TAB PO SCH (20:39)
[2025-01-08 06:09] LABS: Hematocrit (blood only) 26.5 % (37.0-47.0); Hemoglobin 8.5 g/dL (12.0-16.0); Immature Granulocytes # (auto) 0.04 K/uL (0.01-0.20); Immature Granulocytes % (auto) 0.4 %; Mean Corpuscular Hemoglobin 26.4 pg (25.0-34.0); Mean Corpuscular Volume 82.3 fL (80.0-100.0); Platelet Count 190 K/uL (130-400); RDW Standard Deviation 47.8 fL (36.4-46.3); Red Blood Count 3.22 M/uL (4.20-5.40); White Blood Count 8.93 K/ul (4.8-10.8)
[2025-01-08 06:28] LABS: Anion Gap 8.0 (3-11); Blood Urea Nitrogen 14.0 mg/dl (6-23); Calcium 8.7 mg/dl (8.6-10.3); Carbon Dioxide 24.0 mmol/L (21-32); Chloride 107.0 mmol/L (98-107); Creatinine Clr Calc Pharmacy 67.6 ml/min; Glucose 144.0 mg/dl (70-99(Fasting)); Potassium 3.9 mmol/L (3.5-5.1); Sodium 139.0 mmol/L (136-145)
[2025-01-08] MEDS: POLYETHYLENE (MIRALAX) 17 GM PACK PO SCH (06:40)
--- NOTE | 2025-01-08 08:04 | Hospitalist Progress Note ---
Date of Service January 08, 2025 Assessment & Plan (1) Cauda equina syndrome: (2) Hypertension: (3) Prediabetes: (4) Dental infection: (5) Multilevel lumbosacral spondylosis with radiculopathy: (6) Acute blood loss anemia: Plan This is a 74 year old female with PMHx of HTN, HLD, prediabetes, gout who presented to the hospital as a direct admit to the ortho spine service on 01/03/2025 for cauda equina syndrome. #Cauda Equina Syndrome Recent dx in [facility] ED Saw Dr. Slater in outpatient clinic 01/03 & was directly admitted Lumbar spine MRI: severe spinal stenosis @ L3-L4 w/ compression of traversing nerve roots; less severe spinal stenosis @ L2-L3 & L4-L5 w/o visible compression of traversing nerve roots. Underwent L3-L5 decompression and fusion with Dr. Slater on 01/07 Diet, pain management, PT/OT, DVT prophylaxis, and discharge planning per primary team #Acute blood loss anemia Hgb dropped from 10.6 -> 8.5 POD #1 Suspected drop in the setting of spinal surgery + volume dilution from IVF (NSS at 75mL/hr) Other than TOPHER drain, no active bleeding appreciated on clinical exam/history Trend H&H #HTN Outpatient regimen includes: HCTZ, amlodipine, metoprolol succinate. Hold HCTZ EKG reviewed, revealing normal sinus rhythm w/ incomplete RBBB #Prediabetes On Metformin outpatient - hold A1c 6.8%; Place on SSI coverage while inpatient #Dental infection Recent tooth pull & infection. Was prescribed PCN VK 500mg TID outpatient which she recently just started & is to be on for 10 days. Continue PCN VK TID #GERD - PPI #HLD - statin Disposition: Continued stay on MedSurg DVT prophylaxis: per primary team Thank you for allowing us to participate in the care of this patient. Please reach out with any questions or concerns; we will continue to follow. Admission and Anticipated Discharge Date Admission Date: January 03, 2025 Supervising Physician Co-Signing Physician Notes I did not see or examine the patient. I verified all mosher points and agree with Ronnell Kerr PA-C with the following exceptions and/or additions: None Subjective Mrs. Nayak reports marked improvement in her disposition this morning. She was able to ambulate with PT in the hallways today. She denies any back pain at this time, and has no other symptoms while at rest. She still feels some "ti ngling" in the bottom of her feet whenever she is up walking around, but is otherwise asymptomatic. No BMs yet in the hospital. She did take a stool softener this morning at 6:30 AM. ROS: Patient denies back pain, fever, chills, night sweats, chest pain, SOB, abdominal pain, N/V/D, burning with nation, saddle anesthesia, urinary incontinence, numbness or tingling of the lower extremities at rest, or pain shooting down the legs with walking. Review of Systems Review of Systems: See HPI above Physical Exam Physical Exam: General: no acute distress; pleasant affect; sitting upright in her chair eating lunch; non-toxic appearing; cooperative; SpO2 94% on RA HEENT: normocephalic, atraumatic; PERRLA; vision and hearing intact Neck: supple; trachea midline Skin: warm, dry without signs of tenting; no cyanosis; no rashes, bruising, lesions, or erythema noted CV: chest wall NTP; RRR; pulses intact and symmetric at radial, DP, and PT Lungs: no acute respiratory distress; symmetrical chest wall expansion; clear breath sounds across all lung newell w/o adventitious sounds; no wheezing ABD: Soft, NTP; BS present; no rebound/guarding; no distention Back: Upper spine NTP; lower spine NTP; surgical dressing in place without signs of erythema, drainage, or acute infection; TOPHER drain in place draining serosanguineous fluid MSK: no tics or fasciculations; no edema noted in the LEs b/l (note: SCDs/teds in place) Neuro: A&Ox3; normal mood and affect; fluent speech; patient reports sensation is intact and symmetric in the lower extremities bilaterally assessed via light touch Results & Data Results & Data Vital Signs (Past 12 Hours) Vital Signs Temp Pulse Pulse Resp BP Pulse Ox O2 Del Method 01/08/25 07:08 36.4 C L 72 16 179/77 H 98 Room Air 01/08/25 06:30 36.7 C 74 16 137/74 96 Room Air 01/08/25 02:56 36.7 C 81 14 159/80 H 97 Room Air 01/07/25 22:56 36.7 C 85 16 123/75 93 Room Air PG Care Time/CCT Total # of Minutes Spent Total Time Spent with Patient: Total time spent is greater than 50% in coordination of care (as documented) at patient's floor/unit and/or counseling patient: C[place] [address] SUB INP/OBS CARE 2/35MIN Patient Type Established Medical Decision Making Moderate Complexity Diagnoses Cauda equina syndrome G83.4 Hypertension I10 Prediabetes R73.03 Dental infection K04.7 Multilevel lumbosacral spondylosis with radiculopathy M47.27 Acute blood loss anemia D62
--- NOTE | 2025-01-08 08:07 | Orthopedic Progress Note ---
Date of Service January 08, 2025 Assessment & Plan (1) Multilevel lumbosacral spondylosis with radiculopathy: Plan: At this time initiate physical therapy monitor TOPHER operatively discharge home in the next few days. Admission and Anticipated Discharge Date Admission Date: January 03, 2025 Subjective Patient's back pain and leg symptoms are markedly improved. She was able to ambulate with discomfort this morning. Physical Exam Physical Exam: Patient is sitting at the bedside. Eating breakfast. She is comfortable. Distracted testing. Results & Data Vital Signs (Past 12 Hours) Vital Signs Temp Pulse Pulse Resp BP Pulse Ox O2 Del Method 01/08/25 07:08 36.4 C L 72 16 179/77 H 98 Room Air 01/08/25 06:30 36.7 C 74 16 137/74 96 Room Air 01/08/25 02:56 36.7 C 81 14 159/80 H 97 Room Air 01/07/25 22:56 36.7 C 85 16 123/75 93 Room Air Queries Orthopedic Spine Cauda Equina Syndrome: Yes
[2025-01-08] MEDS: dexAMETHasone 6 MG in SYRINGE 0 ML IV SCH (08:31)
[2025-01-09 06:13] LABS: Hematocrit (blood only) 26.1 % (37.0-47.0); Hemoglobin 8.2 g/dL (12.0-16.0); Mean Corpuscular Hemoglobin 25.9 pg (25.0-34.0); Mean Corpuscular Volume 82.6 fL (80.0-100.0); Platelet Count 181 K/uL (130-400); RDW Standard Deviation 50.1 fL (36.4-46.3); Red Blood Count 3.16 M/uL (4.20-5.40); White Blood Count 6.70 K/ul (4.8-10.8)
[2025-01-09 06:28] LABS: Anion Gap 7.0 (3-11); Blood Urea Nitrogen 14.0 mg/dl (6-23); Calcium 8.3 mg/dl (8.6-10.3); Carbon Dioxide 24.0 mmol/L (21-32); Chloride 108.0 mmol/L (98-107); Creatinine Clr Calc Pharmacy 63.5 ml/min; Glucose 116.0 mg/dl (70-99(Fasting)); Potassium 3.6 mmol/L (3.5-5.1); Sodium 139.0 mmol/L (136-145)
--- NOTE | 2025-01-09 06:32 | Electrocardiogram Report ---
Test Reason : Blood Pressure : */* mmHG Vent. Rate : 67 BPM Atrial Rate : 67 BPM P-R Int : 174 ms QRS Dur : 100 ms QT Int : 420 ms P-R-T Axes : 42 -20 43 degrees QTcB Int : 443 ms Normal sinus rhythm Incomplete right bundle branch block Minimal voltage criteria for LVH, may be normal variant ( R in aVL ) Borderline ECG When compared with ECG of 13-Jun-2015 15:52, Incomplete right bundle branch block is now Present Confirmed by Jose Ravi [id number] on 01/09/2025 6:31:28 AM Referred By: Kenroy Slater Confirmed By: Jose Ravi
--- NOTE | 2025-01-09 08:21 | Hospitalist Progress Note ---
Date of Service January 09, 2025 Assessment & Plan (1) Cauda equina syndrome: (2) Hypertension: (3) Prediabetes: (4) Dental infection: (5) Multilevel lumbosacral spondylosis with radiculopathy: (6) Acute blood loss anemia: Plan This is a 74 year old female with PMHx of HTN, HLD, prediabetes, gout who presented to the hospital as a direct admit to the ortho spine service on 01/03/2025 for cauda equina syndrome. #Cauda Equina Syndrome Recent dx in [facility] ED Saw Dr. Slater in outpatient clinic 01/03 & was directly admitted Lumbar spine MRI: severe spinal stenosis @ L3-L4 w/ compression of traversing nerve roots; less severe spinal stenosis @ L2-L3 & L4-L5 w/o visible compression of traversing nerve roots. Underwent L3-L5 decompression and fusion with Dr. Slater on 01/07 Diet, pain management, PT/OT, DVT prophylaxis, and discharge planning per primary team #Acute blood loss anemia Hgb dropped from 10.6 -> 8.5 -> 8.2; POD #2 Suspected drop in the setting of spinal surgery + volume dilution from IVF (NSS at 75mL/hr) Other than TOPHER drain, no active bleeding appreciated on clinical exam/history Trend H&H #HTN Outpatient regimen includes: HCTZ, amlodipine, metoprolol succinate. Hold HCTZ EKG reviewed, revealing normal sinus rhythm w/ incomplete RBBB #Prediabetes On Metformin outpatient - hold A1c 6.8%; Place on SSI coverage while inpatient #Dental infection Recent tooth pull & infection. Was prescribed PCN VK 500mg TID outpatient which she recently just started & is to be on for 10 days. Continue PCN VK TID #GERD - PPI #HLD - statin Disposition: Continued stay on MedSurg; hopeful discharge home tomorrow on 01/10 DVT prophylaxis: per primary team Thank you for allowing us to participate in the care of this patient. Please reach out with any questions or concerns; we will continue to follow. Admission and Anticipated Discharge Date Admission Date: January 03, 2025 Supervising Physician Co-Signing Physician Notes Attending Attestation: Chart reviewed, care plan d/w ANTHONY Kerr. I agree w/ the mosher components of his documentation. Robinson Taylor MD Subjective Mrs. Nayak is in good spirits this morning. Her daughter is at bedside visiting. She reports she slept well last night, and was able to ambulate with PT throughout the hallways today. She is also excited to report that she was able to take a couple of steps out stairs with PT today. The numbness and tingling that was in the bottom of her feet following ambulation yesterday, is not present today. Overall, she reports she feels about the same as yesterday, but denies any lower back pain at this time. ROS: Patient denies lower back pain, numbness tingling going on the feet, saddle anesthesia, headache, lightheadedness with walking, chest pain, SOB, abdominal pain, N/V/D, melena, blood in the urine or stool, or burning with urination. Review of Systems Review of Systems: See HPI above Physical Exam Physical Exam: General: no acute distress; pleasant affect; daughter at bedside; non-toxic appearing; cooperative; SpO2 97% on RA HEENT: normocephalic, atraumatic; PERRLA; vision and hearing intact Neck: supple; trachea midline Skin: warm, dry without signs of tenting; no cyanosis; no rashes, bruising, lesions, or erythema noted CV: chest wall NTP; RRR; pulses intact and symmetric at radial, DP, and PT Lungs: no acute respiratory distress; symmetrical chest wall expansion; clear breath sounds across all lung newell w/o adventitious sounds; no wheezing ABD: Soft, NTP; BS present; no rebound/guarding; no distention Back: Upper spine NTP; lower spine NTP; surgical dressing in place without signs of erythema, drainage, or acute infection; TOPHER drain in place draining serosanguineous fluid MSK: no tics or fasciculations; no edema noted in the LEs b/l (note: SCDs/teds in place) Neuro: A&Ox3; normal mood and affect; fluent speech; patient reports sensation is intact and symmetric in the lower extremities bilaterally assessed via light touch Gait: Patient demonstrates ability to push up off the bed and editor index her walker; ambulates independently around her bed without postural sway; while slow-moving, she is able to sit down on her own independently in the chair VSS Results & Data Results & Data Vital Signs (Past 12 Hours) Vital Signs Temp Pulse Resp BP Pulse Ox O2 Del Method 01/09/25 07:23 36.9 C 72 16 132/68 91 Room Air 01/08/25 21:53 36.5 C 86 16 149/77 H 98 Room Air PG Care Time/CCT Total # of Minutes Spent Total Time Spent with Patient: Total time spent is greater than 50% in coordination of care (as documented) at patient's floor/unit and/or counseling patient: Coding [place] [address] SUB INP/OBS CARE 03/17MIN Patient Type Established Medical Decision Making Low Complexity Diagnoses Cauda equina syndrome G83.4 Hypertension I10 Prediabetes R73.03 Dental infection K04.7 Multilevel lumbosacral spondylosis with radiculopathy M47.27 Acute blood loss anemia D62
--- NOTE | 2025-01-09 09:45 | Orthopedic Progress Note ---
Date of Service January 09, 2025 Assessment & Plan (1) Multilevel lumbosacral spondylosis with radiculopathy: Plan: At this time continue physical therapy monitor TOPHER output anticipate discharge home tomorrow. Admission and Anticipated Discharge Date Admission Date: January 03, 2025 Subjective Back pain is controlled leg symptoms markedly improved. Her bowel functions much better. Physical Exam Physical Exam: Patient is currently in bed. She tells me it is constricted testing. Results & Data Vital Signs (Past 12 Hours) Vital Signs Temp Pulse Resp BP Pulse Ox O2 Del Method 01/09/25 07:23 36.9 C 72 16 132/68 91 Room Air 01/08/25 21:53 36.5 C 86 16 149/77 H 98 Room Air Queries Orthopedic Spine Cauda Equina Syndrome: Yes
--- NOTE | 2025-01-10 08:23 | Discharge Summary ---
Date of Service January 10, 2025 Admission HPI Per Admitting Provider Is a 74-year-old female that was referred to our office today from Dr. Darby in [facility] pain management team. She states since May she has had bilateral leg pain. She has see sought chiropractic treatment in [facility] as well as physical therapy without any long-term improvement. She then went to Dr. Darby for injections. She has received 2. After the first injection she started with loss of control of bowel. She went to a GI specialist at [facility] where they gave her an unknown medication which seemed to help her symptoms. Now for the past 2 weeks that she has had a return of her loss of control of bowel. She also notes urinary retention. She went to [facility] ER this weekend where they told her she has cauda equina syndrome, scheduled her for an outpatient MRI on Saturday 01/06 and told her that she should find a surgeon within 72 hours. She fortunately had a follow-up with Dr. Darby's team the next day where they called our office for urgent appointment. Admission Exam (Per Admitting) Constitutional WD/WN, vitals as above Eyes normal visual newell by confrontation ENMT external ear and nose normal, oropharynx normal Neck normal visual inspection Respiratory normal respiratory effort Cardiovascular Extremities: normal capillary refill Gastrointestinal (Abdomen) Inspection/Auscultation: abdomen normal to inspection Musculoskeletal Spine: + pain with thoraco-lumbar ROM Extremities: extremities normal to inspection and strength 5/5 throughout Gait: + limp Skin no rashes, warm and dry Neurologic normal touch/pain/proprioception and moves all extremities Psychiatric A+Ox3, euthymic affect Eye Contact: good eye contact Affect: euthymic affect Discharge Data Consultations 01/03/25 16:25 Consult Hospitalist Routine 01/05/25 09:27 Consult Anesthesiology Routine Procedures Performed Operation Date: 01/07/25 09:05 Actual Procedures p L3-L5 Decompression and Fusion(Not Applicable) - Kenroy Slater, Hospital Course (1) Cauda equina syndrome: Mary is being discharged home on postoperative day 3 status post L3-5 decompression and instrumented fusion secondary to cauda equina syndrome. Her urinary retention and loss of control of bowel function has greatly improved. Leg pain has resolved. Back pain is controlled. She is have a bowel movement since her surgery. She is up and ambulatory several 100 feet in physical therapy plus the hallways. Discharge Instructions ACTIVITY RECOMMENDATIONS: SELF CARE INSTRUCTIONS AFTER THORACIC/LUMBAR FUSIONS 1. You may walk to your tolerance. It is good exercise for your legs and back. Expect some back and intermittent leg aches and pains. 2. You may perform "counter-top" level activities (make a sandwich, dario with a project, etc.). 3. No bending or lifting of more than 10 pounds or back twisting of any nature (roll like a log when turning in bed). 4. You may ride in a car for 20-30 minutes at a time. No driving until after your first visit with your doctor. 5. Frequent changes of position and restricting sitting to 30 minutes at a time will help limit the amount of back spasms and stiffness you may experience. 6. You may discontinue the use of ambulatory aids (cane, crutches, etc.) once your strength and confidence allow. 7. You may stripping shovel oiler the shower and let water strike your incision when you arrive home at least once daily. Do not take a tub bath, sit in a hot tub or go into a swimming pool until after your first recheck in the office. 8. You may resume previous diet. SPECIAL CARE INSTRUCTIONS: VERY IMPORTANT TO READ AND REVIEW A. Your surgical incision has been closed with a cosmetic suture under the skin that will dissolve in about 6 weeks. In 14 days, you can use a pair of clean scissors and cut the suture that is left outside of the skin at the ends of your incision. 1. The small skin tapes can be removed 7 days after surgery if they have not fallen off by that point. 2. You may keep the wound open to air as much as possible to promote healing after post-op day number 5 unless told otherwise by your doctor. 3. If you think the wound looks like it is becoming infected (redness or worsening drainage) and/or you are experiencing fever, chill or worsening back pain and muscle spasms, contact the office so that we may evaluate you as soon as possible. B. Complications are uncommon, but please contact us if you have any signs or symptoms of: 1. wound infection (fever higher than 102.5 degrees F, redness, separation of wound, drainage, or increasing pain from the incision) 2. blood clots in legs (pain, swelling, redness and warmth in legs) 3. urinary tract infection (fever higher than 102.5 degrees F, burning upon urination or increased frequency of urination) 4. nerve problems (inability to walk on your toes or heels, numbness, loss of bowel or bladder control) 5. any other symptoms that concern you C. Please call the office at if you have any concerns or questions about your operation or recovery. D. No smoking! Smoking drastically decreases the chance of a solid fusion. E. Do not take any anti-inflammatory medications (Indocin, Advil, Motrin, Aspirin, Naprosyn, etc.) as these may inhibit the chance of a solid fusion. Tylenol is okay to take for pain. MANAGING PAIN AFTER SPINAL SURGERY 1. Narcotic medication is intended for short-term use and will be provided for surgical pain. Surgical pain usually lasts for a period of 4-6 weeks. Narcotic medication includes Percocet, Vicodin, Darvocet, Tylenol #3 or Lortab. 2. Longer-term pain is more appropriately treated with non-narcotic medication such as Tylenol ES. 3. Muscle spasm is not appropriately treated with narcotics. Muscle relaxers such as Soma, Flexeril or Skelaxin can be used along with Tylenol ES. 4. Remember that we all live with some "aches and pains". This is not unusual or uncommon after an injury or as we get older. a. Back pain is expected and may include muscle spasms for 4 to 6 weeks after surgery. The pain should gradually improve. If the pain worsens for no apparent reason, please contact the office. b. Intermittent leg pain may also be experienced and should not be concerned about unless it worsens for no apparent reason. If so, please contact the office. 5. We will provide appropriate medication within the normal guidelines of their prescribed use. We will also be very cautious and aware of potential abuse and extended duration of patients' medication needs. a. Pain medications are for your comfort and to assist with sleep and rest so that the tissue can heal. They are not provided in order to return to normal activity and should not be used through the day. To do so or worsening pain at night can result from ongoing tissue damage and development of tolerance to the prescribed medicine. 6. Please allow 2-3 days to process refills. Prescriptions will not be mailed but must be picked up at the office. FOLLOW UP VISIT: Keep your scheduled follow-up appointment. Any questions, please call the office at .
[2025-01-10 12:21] VITALS: BP 139/81; PULSE 77; RESP 16; TEMP 97.7; O2SAT 96
== END 2025-01-10 12:49 | disposition home or self-care (01) | DRG 427 ==
LOC: SUATTDRO 14:29 → OBSVTOIN 14:29 → INTOOBSV 14:29 → 3E 14:29